=== PATIENT | female | born 1980 | race American Indian/Alaskan Native ===

== ENCOUNTER 2021-02-17 04:21 | Emergency (ER) | payer OTHER, MEDICAID ==
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
[2021-02-17 05:38] LABS: Hemoglobin 11.8 gm/dl (10.1-14.3); Mean Corpuscular HGB Conc 34 % (30-34); Mean Corpuscular Volume 89 fl (79-97); Platelet Count 261 K/mm3 (140-440); Red Blood Count 3.93 M/mm3 (3.65-5.03); Red Cell Distribution Width 13.1 % (13.2-15.2)
[2021-02-17 05:59] LABS: Alanine Aminotransferase 13 units/L (7-56); Albumin 4.3 g/dL (3.9-5); Blood Urea Nitrogen 12 mg/dL (7-17); Calcium 9.1 mg/dL (8.4-10.2); Hemolysis Index 10
[2021-02-17 06:11] LABS: BUN/Creatinine Ratio 17
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
[2021-02-17] MEDS ORDERED: EPINEPHrine 1 MG/10 ML SYRINGE ONE (11:01)
[2021-02-17] MEDS ORDERED: IBUPROFEN 800 MG TAB PO ONE (11:02)
[2021-02-17] MEDS ORDERED: oxyCODONE /ACETAMINOPHEN 5-325MG TAB PO ONE (11:02)
[2021-02-17 11:52] VITALS: BP 110/78
== END 2021-02-17 11:53 | disposition home or self-care (01) ==
LOC: ED 04:21
DX: S30.1XXA Contusion of abdominal wall, initial encounter (principal); S09.90XA Unspecified injury of head, initial encounter; F10.920 Alcohol use, unspecified with intoxication, uncomplicated; R10.9 Unspecified abdominal pain; Z88.8 Allergy status to other drugs, medicaments and biological substances; Z88.5 Allergy status to narcotic agent; Y93.89 Activity, other specified; V89.2XXA Person injured in unspecified motor-vehicle accident, traffic, initial encounter; Y92.89 Other specified places as the place of occurrence of the external cause; Y99.8 Other external cause status
CPT/HCPCS: 36415; 70450; 74177; 80053; 84703; 85027; 99284; Q9967; 80320; G0480; J0171